=== PATIENT | female | born 1990 | race Asian ===

== ENCOUNTER 2022-02-28 22:01 | Emergency (ER) | payer OTHER ==
[~2022-02-28] VITALS: Ht 149.9 cm; Wt 63.6 kg
[2022-02-28] MEDS ORDERED: METF-1211 PO (22:06)
[2022-02-28] MEDS ORDERED: LABE200T56 PO (22:06)
[2022-02-28] MEDS ORDERED: IBUPROFEN 600 MG TABLET PO ONE (23:00)
[2022-02-28] MEDS ORDERED: IBUP-2070 PO (23:16)
[2022-02-28 23:32] VITALS: BP 149/99
== END 2022-02-28 23:38 | disposition home or self-care (01) ==
LOC: EMS 22:11
DX: S29.019A Strain of muscle and tendon of unspecified wall of thorax, initial encounter (principal); E11.9 Type 2 diabetes mellitus without complications; I10 Essential (primary) hypertension; V89.2XXA Person injured in unspecified motor-vehicle accident, traffic, initial encounter; Y93.89 Activity, other specified; Y92.411 Interstate highway as the place of occurrence of the external cause; Y99.8 Other external cause status
CPT/HCPCS: 82962; 99282